=== PATIENT | female | born 1995 | race Caucasian/White ===

== ENCOUNTER 2023-01-26 03:39 | Inpatient (IN) | payer OTHER ==
--- NOTE | 2023-01-26 06:19 | NUR ---
BOTH NARES SWABBED SENT TO LAB
--- NOTE | 2023-01-26 10:21 | PR ---
[facility] [address], [place] [address] Signed Progress Notes IP Datetime Report Generated by CPN: 01/26/2023 10:21 PROGRESS NOTES: [id number] Impression: Normal Progression of Labor Plan: Continue Present Management Informed Consent Obtain: Vaginal Delivery VITAL SIGNS: [id number] Vital Signs: Reviewed; Within Normal Limits EXAM: [id number] Dilatation: 6.0 Effacement: 90 Station: -1 Contractions: q 2 min MEMBRANES: [id number] Comments: Pt seen and evaluated. Recent Cx check by RN shows good progression of labor. FHT reassuring. Discussed anticipated course of labor/delivery. All questions answered FETUS A: [id number] FHR Baseline: 130 Variability: Moderate 6-25bpm Accelerations: 15X15 Decelerations: None FHR Category: Category I Presentation: Vertex Comments on Fetus A: No evidence of metabolic acidosis FETUS B: [id number] Signing Physician: Bud Foote DO Copies: ~ *Electronically Signed* 01/26/23 1021 BUD FOOTE (MAYCOL) DO PATIENT NAME: CHEL CHAPPELL PROGRESS NOTE DATE OF : 89 PHYSICIAN: BUD FOOTE (MAYCOL) DO RPT #: [id number] REPORT IS CONFIDENTIAL AND NOT TO BE RELEASED WITHOUT AUTHORIZATION
--- NOTE | 2023-01-26 12:00 | PR ---
[facility] [address] [place], [place] [address] Signed Progress Notes IP Datetime Report Generated by CPN: 01/26/2023 12:00 PROGRESS NOTES: [id number] Impression: Normal Progression of Labor; Reassuring Heart Rate Procedures: Sterile Vag Exam Plan: Continue Present Management Informed Consent Obtain: Vaginal Delivery VITAL SIGNS: [id number] Vital Signs: Reviewed; Within Normal Limits EXAM: [id number] Dilatation: 9.0 Effacement: 90 Station: -1 Contractions: q 2 min MEMBRANES: [id number] Comments: Pt seen and examined. Doing well. Comfortable w/ epidural. Discussed anticipated course of labor. All questions answered. FETUS A: [id number] FHR Baseline: 130 Variability: Moderate 6-25bpm Accelerations: 15X15 Decelerations: None FHR Category: Category I Presentation: Vertex Comments on Fetus A: No evidence of metabolic acidosis FETUS B: [id number] Signing Physician: Bud Foote DO Copies: ~ *Electronically Signed* 01/26/23 1200 BUD FOOTE (MAYCOL) DO PATIENT NAME: TAJAMILADY BARNES PROGRESS NOTE DATE OF : 89 PHYSICIAN: BUD FOOTE) DO RPT #: [id number] REPORT IS CONFIDENTIAL AND NOT TO BE RELEASED WITHOUT AUTHORIZATION
--- NOTE | 2023-01-26 13:00 | PR ---
[facility] [address] [facility] [place], [place] [address] Signed Progress Notes IP Datetime Report Generated by CPN: 01/26/2023 13:00 PROGRESS NOTES: [id number] Impression: Normal Progression of Labor; Reassuring Heart Rate Procedures: Sterile Vag Exam Plan: Anticipate Vaginal Delivery Informed Consent Obtain: Vaginal Delivery VITAL SIGNS: [id number] Vital Signs: Reviewed; Within Normal Limits EXAM: [id number] Dilatation: 10.0 Effacement: 100 Station: 1 Contractions: q 2 min MEMBRANES: [id number] Comments: Pt doing well. More uncomfortable w/ contractions. Complete +1 station. Anticipate soon. FETUS A: [id number] FHR Baseline: 130 Variability: Moderate 6-25bpm Accelerations: 15X15 Decelerations: None FHR Category: Category I Presentation: Vertex Comments on Fetus A: No evidence of metabolic acidosis FETUS B: [id number] Signing Physician: Bud Foote DO Copies: ~ *Electronically Signed* 01/26/23 1300 BUD FOOTE (MAYCOL) DO PATIENT NAME: CHEL CHAPPELL PROGRESS NOTE DATE OF : 89 PHYSICIAN: BUD FOOTE) DO RPT #: [id number] REPORT IS CONFIDENTIAL AND NOT TO BE RELEASED WITHOUT AUTHORIZATION
--- NOTE | 2023-01-27 13:01 | PR ---
[facility] [address] [facility] [place], [place] [address] Signed PP Progress Notes Datetime Report Generated by CPN: 01/27/2023 13:01 SUBJECTIVE: [id number] Pain: Within Normal Limits Nausea/Vomiting: Denies Flatus: Yes Bowel Movement: Yes Vital Signs: [id number] Vital Signs: Reviewed; Within Normal Limits Cardiovascular: Normal Respiratory: Normal Abdomen/Uterus: Normal Lochia: Normal Vulva/Perineum: Not Done Breasts: Not Done CVA Tenderness: Normal Extremities: Normal Incision: Not Applicable Progress: Normal Exam Comments: Fundus firm U-2 nontender IMPRESSION/PLAN/PROCEDURES: [id number] Impression: Normal Progression Plan: Continue Present Management Progress Notes: Pt seen and examined. Doing well. Ambulating, voiding, and tolerating full diet. Pain and lochia minimal. well. No fever/chills/other concerns. Planning d/c home tomorrow. All questions answered Signing Physician: Bud Foote DO Copies: ~ *Electronically Signed* 01/27/23 1301 BUD FOOTE (MAYCOL) DO PATIENT NAME: CHEL CHAPPELL PROGRESS NOTE DATE OF : 96 PHYSICIAN: BUD FOOTE (MAYCOL) DO RPT #: [id number] REPORT IS CONFIDENTIAL AND NOT TO BE RELEASED WITHOUT AUTHORIZATION
--- NOTE | 2023-01-27 15:53 | NUR ---
in to introduce self to pt and dad, dad holding baby mom resting in bed, call light in reach - denies needs, denies pain - will call with needs.
--- NOTE | 2023-01-28 06:19 | PR ---
[facility] [address] [facility] [place], [place] [address] Signed PP Progress Notes Datetime Report Generated by CPN: 01/28/2023 06:19 SUBJECTIVE: [id number] Pain: Within Normal Limits Nausea/Vomiting: Denies Flatus: Yes Bowel Movement: Yes Vital Signs: [id number] Vital Signs: Reviewed; Within Normal Limits Cardiovascular: Normal Respiratory: Normal Abdomen/Uterus: Normal Lochia: Normal Vulva/Perineum: Not Done Breasts: Not Done CVA Tenderness: Normal Extremities: Normal Incision: Not Applicable Progress: Normal Exam Comments: Fundus firm U-2 nontender IMPRESSION/PLAN/PROCEDURES: [id number] Impression: Normal Progression Plan: Discharge Progress Notes: Pt seen and examined. Doing well. Ambulating, voiding, and tolerating full diet. Pain and lochia minimal. well. No fever/chill or other concerns. Desires d/c home. Reviewed d/c instructions and medications in detail. Planning micronor for pp contraception. All questions answered. F/U 2 wks Signing Physician: Bud Foote DO Copies: ~ *Electronically Signed* 01/28/23 0619 BUD FOOTE (MAYCOL) DO PATIENT NAME: CHEL CHAPPELL PROGRESS NOTE DATE OF : 96 PHYSICIAN: BUD FOOTE (JD) DO RPT #: [id number] REPORT IS CONFIDENTIAL AND NOT TO BE RELEASED WITHOUT AUTHORIZATION
== END 2023-01-28 13:50 | disposition home or self-care (01) | DRG 806 ==
LOC: FBCO 03:39 → FBC 05:12
PROVIDERS: ADMIT Obstetrics & Gynecology; ATTEND Obstetrics & Gynecology
PROC: 10E0XZZ Delivery of Products of Conception, External Approach (ICD-10-PCS; principal; 2023-01-26)
PROC: 3E0P7VZ Introduction of Hormone into Female Reproductive, Via Natural or Artificial Opening (ICD-10-PCS; 2023-01-26)
PROC: 00HU33Z Insertion of Infusion Device into Spinal Canal, Percutaneous Approach (ICD-10-PCS; 2023-01-26)
PROC: 3E0R3BZ Introduction of Anesthetic Agent into Spinal Canal, Percutaneous Approach (ICD-10-PCS; 2023-01-26)
DX: O99.892 Other specified diseases and conditions complicating childbirth (principal); N13.30 Unspecified hydronephrosis; Z37.0 Single live birth; O72.1 Other immediate postpartum hemorrhage; O99.824 Streptococcus B carrier state complicating childbirth; Z3A.38 38 weeks gestation of pregnancy; Z20.822 Contact with and (suspected) exposure to COVID-19; Z79.899 Other long term (current) drug therapy; Z67.10 Type A blood, Rh positive
CPT/HCPCS: 36415; 85027; 86850; 86900; 86901; 87502; A9270; C9803; J2405; J2540; J2590; J2795; J7121; U0003